=== PATIENT | female | born 1995 | race Caucasian/White ===

== ENCOUNTER 2021-12-31 06:18 | Inpatient (IN) ==
[2021-12-31] MEDS ORDERED: PITOCIN ONE (06:39)
[2021-12-31] MEDS ORDERED: BETADINE SOLN ONE (06:39)
[2021-12-31] MEDS ORDERED: D5 1/2 NS 1,000 ML 1,000 ML IV ONE (06:39)
[2021-12-31] MEDS ORDERED: D5 LR + PITOCIN 10 UNITS/L 10 UNITS/1,000 ML BAG IV ONE (06:40)
[2021-12-31] MEDS ORDERED: D5 1/2 NS 1,000 mL + PITOCIN 20 UNITS/L IV 20 UNITS/1,000 ML BAG IV ONE (06:40)
[2021-12-31] MEDS ORDERED: D5 LR + PITOCIN 10 UNITS/L 10 UNITS/1,000 ML BAG IV PRN (06:47)
[2021-12-31] MEDS ORDERED: AMPICILLIN VIAL 2 GRAM 2 G in NS 100 ML IV + SPIKE MINIBAG* 100 ML IV SCH (06:47)
[2021-12-31] MEDS ORDERED: REGLAN INJ 10 MG VIAL IVP PRN (06:47)
[2021-12-31] MEDS ORDERED: PHENERGAN INJ 25 MG IM PRN ×2 (06:47→11:56)
[2021-12-31] MEDS ORDERED: PITOCIN IVP ONE (06:47)
[2021-12-31] MEDS ORDERED: NUBAIN INJ 200 MG VIAL MULTIDOSE IVP PRN (06:47)
[2021-12-31] MEDS ORDERED: D5 1/2 NS 1,000 ML 1,000 ML IV SCH (06:47)
[2021-12-31] MEDS ORDERED: MORPHINE SULFATE INJ 2 MG INJ IVP PRN (06:47)
[2021-12-31] MEDS ORDERED: AMPICILLIN VIAL 2 GRAM ONE (06:56)
[2021-12-31] MEDS ORDERED: NS 100 ML IV 100 ML ONE (06:56)
[2021-12-31 07:11] LABS: BILIRUBIN,URINE NEGATIVE (NEGATIVE); BLOOD/HEMOGLOBIN,URINE 1+ (NEGATIVE); GLUCOSE, URINE NEGATIVE (NEGATIVE); KETONES,URINE 1+ (NEGATIVE); LEUKOCYTE ESTERASE ,URINE 3+ (NEGATIVE); NITRITES,URINE NEGATIVE (NEGATIVE); PROTEIN,URINE 2+ (NEGATIVE); UROBILINOGEN,URINE NORMAL (NORMAL)
--- NOTE | 2021-12-31 07:15 | DR.OB ---
OB Quick Note - Assessment/Plan Assessment/Plan: L&D 12/31/21 q5 7:00am S-No complaint. O-Afebrile,VSS GFG=341 with good LTV, +accel, no decel CTX=none CVX=3/50%/-1/VTX AROM with clear fluid. IUPC and FSE placed. A-IUP at 39 0/7 weeks for induction +GBS seizure d.o. anxiety drug abuse P-Begin pitocin induction IV ABX in labor for +GBS Anticipate
[2021-12-31 07:19] LABS: BASOPHILS % (AUTO) 0.3 % (0.2-1.0); EOSINOPHILS # (AUTO) 0.2 x10^3/uL (0.0-0.2); HEMATOCRIT 34.5 % (36.0-47.0); HEMOGLOBIN 11.8 g/dL (12.0-16.0); LYMPHOCYTES # (AUTO) 2.3 X10^3/uL (1.3-2.9); LYMPHOCYTES % (AUTO) 12.8 % (21.0-51.0); MEAN CORPUSCULAR HGB CONC 34.1 g/dL (33.0-35.0); MEAN CORPUSCULAR VOLUME 90.7 fL (80.0-100.0); MEAN PLATELET VOLUME 10.2 fL (7.4-11.0); MONOCYTES # (AUTO) 1.1 x10^3/uL (0.3-0.8); MONOCYTES % (AUTO) 6.4 % (0.0-13.0); NEUTROPHILS % (AUTO) 79.5 % (42.0-75.0); RED BLOOD COUNT 3.81 X10^6/uL (3.5-5.4); RED CELL DISTRIBUTION WIDTH 13.9 % (11.6-16.5); WHITE BLOOD COUNT 17.6 X10^3/uL (3.6-10.0)
[2021-12-31] MEDS ORDERED: STADOL INJ IVP PRN (07:23)
[2021-12-31 07:26] LABS: BLOOD UREA NITROGEN 8 mg/dL (7-18); CALCIUM 8.1 mg/dL (8.5-10.1); CARBON DIOXIDE 23.3 mmol/L (21-32); CHLORIDE 105 mmol/L (98-107); SODIUM 138 mmol/L (136-145); eGFR NON BLACK RACES > 60 (>60)
[2021-12-31 07:54] LABS: APPEARANCE,URINE HAZY (CLEAR); COLOR,URINE YELLOW (YELLOW)
[2021-12-31 07:55] LABS: BACTERIA,URINE 1+ /HPF (NEGATIVE); SQUAMOUS EPITHELIAL CELL,UR MANY /HPF (NEGATIVE)
[2021-12-31 07:56] LABS: SPERM,URINE RARE /HPF (NEGATIVE)
[2021-12-31] MEDS ORDERED: STADOL INJ ONE (08:22)
[2021-12-31] MEDS ORDERED: LR 1,000 ML IV 1,000 ML IV ONE (09:15)
[2021-12-31] MEDS ORDERED: NAROPIN 0.2% 400 MG/200 ML BAG 200 ML ONE (09:46)
[2021-12-31] MEDS ORDERED: FENTANYL VIAL INJ 100 mcg ONE ×2 (09:46)
[2021-12-31] MEDS ORDERED: AMPICILLIN VIAL 1 GRAM 1 G in NS 50 ML IV + SPIKE MINIBAG* 50 ML IV SCH (12:00)
[2021-12-31] MEDS: D5 1/2 NS 1,000 ML 1,000 ML with PITOCIN 20 UNITS IV SCH ×4 (13:00→22:02)
[2021-12-31] MEDS ORDERED: AMBIEN PO PRN (13:20)
[2021-12-31] MEDS ORDERED: ADACEL or BOOSTRIX TDaP VACCINE IM ONE (13:20)
[2021-12-31] MEDS ORDERED: DERMOPLAST PAIN RELIEF SPRAY TOP PRN (13:20)
[2021-12-31] MEDS ORDERED: MILK OF MAGNESIA PO PRN (13:20)
[2021-12-31] MEDS: VSL#3 PO SCH ×3 (14:35→14:36)
--- NOTE | 2021-12-31 16:42 | DR.OB ---
OB Quick Note - Assessment/Plan Assessment/Plan: Delivery Note TRAFFIC DIRECTOR 12/31/21 at 11:47am Patient complete and pushing. Head delivered over intact perineum. Nuchal cord x 1 reduced. Nose and mouth bulb suctioned. Body delivered over intact perineum. Cord clamped x 2 and cut. Infant handed to attendant. Cord sent for gases. Placenta delivered spontaneously / intact / 3 vessel cord. No CVX / vaginal / perineal tears noted. Viable male , VTX/OA, wt=7'5" and 8/9, stable to NBN. Mother stable to RR. SPL=419wk.
[2021-12-31] MEDS: MOTRIN TAB 800 MG PO PRN (17:01)
[2021-12-31] MEDS: NICOTINE PATCH TD SCH (17:47)
[2021-12-31] MEDS ORDERED: XANAX PO PRN (20:58)
[2021-12-31] MEDS: KEPPRA TAB 500 MG PO SCH (20:58)
[2021-12-31] MEDS ORDERED: LEXAPRO ONE (22:00)
[2021-12-31] MEDS: LEXAPRO PO SCH (22:02)
[2021-12-31] MEDS: CHECK PATCH XX SCH (22:03)
[2022-01-01 05:00] LABS: HEMATOCRIT 33.3 % (36.0-47.0); HEMOGLOBIN 11.4 g/dL (12.0-16.0)
[2022-01-01] MEDS: D5 1/2 NS 1,000 ML 1,000 ML with PITOCIN 20 UNITS IV SCH ×2 (05:30)
[2022-01-01] MEDS ORDERED: DEPO-PROVERA CONTRACEPTIVE INJ IM ONE (07:40)
[2022-01-01] MEDS ORDERED: LEXAPRO ONE (08:29)
[2022-01-01] MEDS: PRENATAL PLUS PO SCH (08:32)
[2022-01-01] MEDS: KEPPRA TAB 500 MG PO SCH ×2 (08:33→21:47)
[2022-01-01] MEDS: NICOTINE PATCH TD SCH ×3 (08:34→17:41)
[2022-01-01] MEDS: CHECK PATCH XX SCH ×4 (08:34→21:46)
[2022-01-01] MEDS: LEXAPRO PO SCH (08:34)
[2022-01-01] MEDS: VSL#3 PO SCH (08:52)
[2022-01-01] MEDS ORDERED: ADACEL or BOOSTRIX TDaP VACCINE IM ONE (13:00)
[2022-01-01] MEDS: MOTRIN TAB 800 MG PO PRN (17:42)
[2022-01-02] MEDS ORDERED: LEXAPRO ONE (08:17)
[2022-01-02] MEDS: PRENATAL PLUS PO SCH (08:27)
[2022-01-02] MEDS: KEPPRA TAB 500 MG PO SCH ×2 (08:27→21:08)
[2022-01-02] MEDS: CHECK PATCH XX SCH ×2 (08:27→21:07)
[2022-01-02] MEDS: NICOTINE PATCH TD SCH (08:27)
[2022-01-02] MEDS: LEXAPRO PO SCH (08:28)
[2022-01-02] MEDS: VSL#3 PO SCH (08:28)
[2022-01-02] MEDS: MOTRIN TAB 800 MG PO PRN ×2 (08:30→21:08)
[2022-01-03 08:15] VITALS: BP 122/76
[2022-01-03] MEDS ORDERED: LEXAPRO ONE (08:17)
[2022-01-03] MEDS: KEPPRA TAB 500 MG PO SCH (08:21)
[2022-01-03] MEDS: CHECK PATCH XX SCH (08:21)
[2022-01-03] MEDS: LEXAPRO PO SCH (08:22)
[2022-01-03] MEDS: VSL#3 PO SCH (08:29)
[2022-01-03] MEDS: PRENATAL PLUS PO SCH (08:29)
[2022-01-03] MEDS: NICOTINE PATCH TD SCH (08:29)
== END 2022-01-03 08:15 | disposition home or self-care (01) | DRG 806 ==
LOC: LD 06:18 → MED/SURG 14:15
PROVIDERS: ADMIT Specialist; ATTEND Specialist